=== PATIENT | male | born 2000 | race Caucasian/White ===

== ENCOUNTER 2021-10-30 17:05 | Emergency (ER) | payer OTHER ==
--- OUTSIDE RECORDS SUMMARY | 2021-10-30 17:07 | XMS REPORT | Continuity of Care Document ---
:2000 Author Organization [facility] Address [address] [place] [address] Dr. Garcia [address] [place] [id number] Care Team Providers Name Role Phone Unavailable Unavailable Unavailable Problems This patient has no known problems. Allergies, Adverse Reactions, Alerts This patient has no known allergies or adverse reactions. Medications This patient has no known medications. Procedures This patient has no known procedures. Results This patient has no known results.
[2021-10-30 18:39] LABS: Absolute Lymphocytes (CBC) 0.7 K/uL (0.7-4.9); Hematocrit 39.4 % (39.6-49.0); Lymphocytes % 9.3 % (15.3-44.8); MPV 9.3 fL (7.6-11.3); RBC Red Blood Cell Count 4.59 M/uL (4.33-5.43)
[2021-10-30] MEDS ORDERED: MORPHINE 4 MG/ML SYR ONE (18:40)
[2021-10-30] MEDS ORDERED: ONDANSETRON 4 MG/2 ML VIAL ONE (18:40)
[2021-10-30] MEDS ORDERED: NA CHLORIDE 0.9% 1,000 ML ONE (18:40)
[2021-10-30 18:57] LABS: ALT/SGPT 149 U/L (12-78); AST/SGOT 72 U/L (15-37); Albumin 3.8 g/dL (3.4-5.0); Alkaline Phosphatase 66 U/L (45-117); BUN Blood Urea Nitrogen 10 mg/dL (7-18); Bicarbonate 29 mmol/L (21-32); Bilirubin Direct 0.2 mg/dL (0-0.2); Bilirubin Total 0.6 mg/dL (0.2-1.0); Glucose Level 92 mg/dL (74-106); Lipase 58 U/L (73-393); Potassium 4.2 mmol/L (3.5-5.1); Protein, Total 7.7 g/dL (6.4-8.2); Sodium Level 134 mmol/L (136-145)
--- NOTE | 2021-10-30 19:27 | RAD REPORT ---
EXAM DESCRIPTION: CT - Abdomen Pelvis W Contrast - 10/30/2021 7:08 pm CLINICAL HISTORY: lower abdomen pain, appendectomy 2 weeks ago COMPARISON: No comparisons TECHNIQUE: Biphasic, helical CT imaging of the abdomen and pelvis was performed following 100 ml non -ionic IV contrast. No oral contrast was administered. All CT scans are performed using dose optimization technique as appropriate and may include automated exposure control or mA/KV adjustment according to patient size. FINDINGS: No suspicious findings in the lung bases. The liver, spleen, and pancreas show no suspicious findings. A 2.4 centimeter oval cystic masses pres ent posterior to the medial margin of the spleen. This is discrete from the spleen and left kidney. T his is not regarded as significant. Gallbladder and biliary tree are also without suspicious finding. Symmetric renal function is seen with no hydronephrosis or suspicious renal mass. No pyelonephritis o r acute parenchymal process. No bladder abnormalities. No adrenal abnormalities. No stomach or small bowel abnormality. A few small mesenteric lymph nodes are seen. The patient is st atus post appendectomy 2 weeks earlier. There is minimal stranding at the tip of the cecum. This is s till within range of normal for the recent surgery. There is no abscess seen. Trace free fluid in the dependent portion of the pelvis is also within limits for the recent surgery. No free air or pneumat osis. No hernia, mass or bulky lymphadenopathy. No suspicious bony findings. IMPRESSION: Minimal remnant stranding is present at the tip of the cecum related to recent appendect bushra. This amount of stranding is not outside of normal range. No abscess, abnormal free air, abnormal free fluid or other evidence for postsurgical complication.
[2021-10-30 20:28] LABS: Urine Blood Negative (Negative); Urine Glucose Negative (Negative); Urine Protein Negative (Negative); Urine pH 6.5 (5.0-7.0)
--- NOTE | 2021-10-30 21:03 | EDPHYS ---
Physician Documentation [facility] Name: Bigg Diaz Age: 21 yrs Sex: Male : 2000 Arrival Date: 10/30/2021 Time: 17:07 Bed 16 Private MD: ED Physician Leonel Sandoval HPI: 10/30 18:09 This 21 yrs old Male presents to ER via Ambulatory with complaints of Abdominal Pain, cp Fever - flu a+. 18:09 The patient presents with abdominal pain in the lower abdomen. cp 18:10 Onset: The symptoms/episode began/occurred gradually, and became worse today. cp 18:10 The symptoms do not radiate. Associated signs and symptoms: Pertinent positives: cp nausea, Pertinent negatives: constipation, diarrhea, dysuria, fever, testicular pain, vomiting. Severity of pain: in the emergency department the pain is unchanged despite home interventions. Mother reports patient with history of appendectomy 2 weeks ago by out of town surgeon. Historical: - Allergies: 17:28 Tylenol with codeine; ld1 - Home Meds: 17:28 None [Active]; ld1 - PMHx: 17:28 None; ld1 - PSHx: 17:28 Appendectomy; ld1 - Immunization history:: Adult Immunizations up to date, Client reports having NOT received the Covid vaccine. - Social history:: Smoking status: Patient denies any tobacco usage or history of. Patient uses alcohol, occasionally. ROS: 18:15 Constitutional: Negative for fever, poor PO intake. cp 18:15 Eyes: Negative for injury, pain, redness, and discharge. cp 18:15 ENT: Negative for drainage from ear(s), ear pain, sore throat, difficulty swallowing, difficulty handling secretions. 18:15 Cardiovascular: Negative for chest pain, palpitations. 18:15 Respiratory: Negative for cough, shortness of breath, wheezing. 18:15 Abdomen/GI: Positive for abdominal pain, nausea, Negative for diarrhea, constipation. 18:15 Back: Negative for radiated pain. 18:15 Neuro: Negative for altered mental status, headache, weakness. 18:15 All other systems are negative. Exam: 18:20 Constitutional: The patient appears in no acute distress, alert, awake, non-toxic, well cp developed, well nourished. 18:20 Head/Face: Normocephalic, atraumatic. cp 18:20 Eyes: Periorbital structures: appear normal, Conjunctiva: normal, no exudate, no injection, Sclera: no appreciated abnormality, Lids and lashes: appear normal, bilaterally. 18:20 ENT: External ear(s): are unremarkable, Nose: is normal, Mouth: Lips: moist, Oral mucosa: moist, Posterior pharynx: Airway: no evidence of obstruction, patent. 18:20 Chest/axilla: Inspection: normal. 18:20 Cardiovascular: Rate: tachycardic, Rhythm: regular. 18:20 Respiratory: the patient does not display signs of respiratory distress, Respirations: normal, no use of accessory muscles, no retractions, labored breathing, is not present, Breath sounds: are clear throughout, no decreased breath sounds, no stridor, no wheezing. 18:20 Abdomen/GI: Inspection: abdomen appears normal, Bowel sounds: active, all quadrants, Palpation: soft, in all quadrants, moderate abdominal tenderness, in the right lower quadrant and left lower quadrant, rebound tenderness, is not appreciated, involuntary guarding, is not appreciated. 18:20 Back: pain, is absent, ROM is normal. 18:20 Skin: cellulitis, is not appreciated, no rash present. 18:20 Neuro: Orientation: to person, place \T\ time. Mentation: is normal, Motor: moves all fours, strength is normal, Sensation: is normal. Vital Signs: 17:27 BP 121 / 83; Pulse 110; Resp 20; Temp 98.9(O); Pulse Ox 98% on R/A; Weight 99.79 kg; ld1 Height 5 ft. 10 in. (177.80 cm); Pain 6/10; 19:30 BP 106 / 63; Pulse 86; Resp 18 S; Pulse Ox 98% on R/A; al4 21:23 BP 115 / 80; Pulse 92; Resp 18 S; Pulse Ox 98% on R/A; al4 21:58 BP 117 / 72; Pulse 94; Resp 18 S; Pulse Ox 100% on R/A; al4 17:27 Body Mass Index 31.57 (99.79 kg, 177.80 cm) ld1 MDM: 17:43 Patient medically screened. cp 18:00 Differential diagnosis: bowel obstruction, non-specific abd pain, Pyelonephritis, cp Ureterolithiasis, urinary tract infection. 21:00 Data reviewed: vital signs, nurses notes, lab test result(s), radiologic studies, CT cp scan. 21:00 Counseling: I had a detailed discussion with the patient and/or guardian regarding: the cp historical points, exam findings, and any diagnostic results supporting the discharge/admit diagnosis, lab results, radiology results. Response to treatment: the patient's symptoms have markedly improved after treatment, and as a result, I will discharge patient. Special discussion: Based on the patient's Hx, exam, and Dx evaluation, there is no indication for emergent surgery or inpatient Tx. It is understood by the patient/guardian that if the Sx's persist or worsen they need to return immediately for re-evaluation. 10/30 17:57 Order name: Basic Metabolic Panel 10/30 17:57 Order name: CBC with Diff; Complete Time: 19:42 10/30 19:43 Interpretation: Normal except: HCT 39.4; MCV 85.7; MCH 29.6; JENNIE% 82.1; LYM% 9.3. 10/30 17:57 Order name: Hepatic Function; Complete Time: 19:42 10/30 19:43 Interpretation: Normal except: AST 72; ALT 149; GLOB 3.9; A/G 1.0. 10/30 17:57 Order name: Lipase; Complete Time: 19:42 10/30 17:58 Order name: Urine Microscopic Only 10/30 17:58 Order name: Basic Metabolic Panel; Complete Time: 19:42 EDND 10/30 20:19 Interpretation: Normal except: NA 134. 10/30 17:58 Order name: CT Abd/Pelvis - IV Contrast Only; Complete Time: 19:42 10/30 19:43 Interpretation: Report reviewed. 10/30 17:58 Order name: Urine Microscopic Only EDND 10/30 20:28 Order name: Urine Dipstick-Ancillary; Complete Time: 21:02 EDND 10/30 17:57 Order name: IV Saline Lock; Complete Time: 18:51 10/30 17:57 Order name: Labs collected and sent; Complete Time: 18:51 10/30 17:58 Order name: Urine Dipstick-Ancillary (obtain specimen); Complete Time: 20:28 10/30 19:44 Order name: PO challenge; Complete Time: 21:09 cp Administered Medications: 18:50 Drug: Zofran (Ondansetron) 4 mg Route: IVP; Site: left antecubital; ab2 20:00 Follow up: Response: No adverse reaction al4 18:51 Drug: NS 0.9% 1000 ml Route: IV; Rate: 1 bolus; Site: left antecubital; ab2 21:35 Follow up: Response: No adverse reaction; IV Status: Completed infusion al4 18:51 Drug: morphine 4 mg Route: IVP; Site: left antecubital; ab2 20:00 Follow up: Response: No adverse reaction; RASS: Alert and Calm (0) al4 21:27 Drug: Phenergan (promethazine) 12.5 mg Route: IVP; Site: left antecubital; al4 22:07 Follow up: Response: No adverse reaction al4 21:28 Drug: fentaNYL (PF) 25 mcg {Note: 2RN dose check with RN. Eleonora} Route: IVP; Site: al4 left antecubital; 22:07 Follow up: Response: No adverse reaction; RASS: Alert and Calm (0) al4 Disposition Summary: 10/30/21 21:02 Discharge Ordered Location: Home cp Problem: new cp Symptoms: have improved cp Condition: Stable cp Diagnosis - Lower abdominal pain, unspecified cp Followup: cp - With: Private Physician - When: 2 - 3 days - Reason: Recheck today's complaints Discharge Instructions: - Discharge Summary Sheet cp - Abdominal Pain, Adult cp Forms: - Medication Reconciliation Form cp - Thank You Letter cp - Antibiotic Education cp - Prescription Opioid Use cp Prescriptions: - promethazine 25 mg Oral Tablet - take 1 tablet by ORAL route every 6 hours As needed; 20 tablet; Refills: 0, cp Product Selection Permitted - Ibuprofen 800 mg Oral Tablet - take 1 tablet by ORAL route every 8 hours As needed take with food; 30 tablet; cp Refills: 0, Product Selection Permitted Addendum: 11/03/2021 18:25 Co-signature as Attending Physician, Leonel Sandoval MD I agree with the assessment and c thornton plan of care. Signatures: Dispatcher [employer] EDLeonel Deleon MD MD cha Page, Corey, PA PA cp Radha Mcmillan RN RN ld1 Rohit Bryant al4 Rohit López ab2 Corrections: (The following items were deleted from the chart) 10/30 17:29 17:28 Allergies: No Known Allergies; ld1 ld1
--- NOTE | 2021-10-30 21:03 | ER ---
Nurse's Notes [facility] Name: Bigg Diaz Age: 21 yrs Sex: Male : 2000 Arrival Date: 10/30/2021 Time: 17:07 Bed 16 Private MD: Diagnosis: Lower abdominal pain, unspecified Presentation: 10/30 17:27 Chief complaint: Patient states: Pt has appendectomy 2 weeks ago. C/O on and off fever ld1 - lower ABD pain. Coronavirus screen: At this time, the client does not indicate any symptoms associated with coronavirus-19. Ebola Screen: No symptoms or risks identified at this time. Initial Sepsis Screen: Does the patient meet any 2 criteria? No. Patient's initial sepsis screen is negative. Does the patient have a suspected source of infection? No. Patient's initial sepsis screen is negative. Risk Assessment: Do you want to hurt yourself or someone else? Patient reports no desire to harm self or others. Onset of symptoms was October 30, 2021. 17:27 Method Of Arrival: Ambulatory ld1 17:27 Acuity: MORRIS 3 ld1 Triage Assessment: 17:28 General: Appears in no apparent distress. comfortable, Behavior is calm, cooperative, ld1 appropriate for age. Pain: Complains of pain in right lower quadrant and left lower quadrant Pain does not radiate. Pain currently is 6 out of 10 on a pain scale. Quality of pain is described as throbbing. Neuro: Level of Consciousness is awake, alert, obeys commands, Oriented to person, place, time, situation. GI: Abdomen is flat, non-distended, Reports lower abdominal pain. Historical: - Allergies: 17:28 Tylenol with codeine; ld1 - Home Meds: 17:28 None [Active]; ld1 - PMHx: 17:28 None; ld1 - PSHx: 17:28 Appendectomy; ld1 - Immunization history:: Adult Immunizations up to date, Client reports having NOT received the Covid vaccine. - Social history:: Smoking status: Patient denies any tobacco usage or history of. Patient uses alcohol, occasionally. Screenin:58 Abuse screen: Denies threats or abuse. Denies injuries from another. Nutritional cb5 screening: No deficits noted. Tuberculosis screening: No symptoms or risk factors identified. 22:06 Fall Risk None identified. al4 Assessment: 17:15 General: Appears in no apparent distress. comfortable. General: Appears. Pain: cb5 Complains of pain in abdomen and left lower quadrant and right lower quadrant. Neuro: No deficits noted. Cardiovascular: No deficits noted. Respiratory: No deficits noted. GI: Bowel sounds present X 4 quads. Abd is soft Abdomen is tender to palpation in right upper quadrant and right lower quadrant. : No deficits noted. Derm: No deficits noted. Musculoskeletal: No deficits noted. 19:30 General: Appears in no apparent distress. comfortable, Behavior is calm, cooperative, al4 Mother at bedside. Patient is complaining of nausea and sore throat at this time. . Pain: Complains of pain in abdomen. Neuro: Level of Consciousness is awake, alert, obeys commands, Oriented to person, place, time, situation. Cardiovascular: Capillary refill < 3 seconds Patient's skin is warm and dry. Respiratory: Airway is patent Respiratory effort is unlabored, Respiratory pattern is regular. Musculoskeletal: Range of motion: intact in all extremities. 20:20 Reassessment: ER PA at bedside. Patient is complaining of pain and nausea. al4 20:21 Reassessment: I have made patient aware of the need for urine. Patient states that he al4 just went to the restroom. Started fluids back up and patient will call me when he needs to void. 20:27 Reassessment: Urine dipstick and Urine labs performed and sent by Nikkie Hunter RN. al4 21:38 Reassessment: waiting 30 minutes to reassess patient after medication administration al4 before discharge. 22:06 Reassessment: Patient states he is feeling better. Patient c/o sore throat and feeling al4 tired. Patient is alert, awake, and oriented. Mother at bedside - Mother is driving patient home. Patient educated on medication instructions and interactions with at home medication. Vital Signs: 17:27 BP 121 / 83; Pulse 110; Resp 20; Temp 98.9(O); Pulse Ox 98% on R/A; Weight 99.79 kg; ld1 Height 5 ft. 10 in. (177.80 cm); Pain 6/10; 19:30 BP 106 / 63; Pulse 86; Resp 18 S; Pulse Ox 98% on R/A; al4 21:23 BP 115 / 80; Pulse 92; Resp 18 S; Pulse Ox 98% on R/A; al4 21:58 BP 117 / 72; Pulse 94; Resp 18 S; Pulse Ox 100% on R/A; al4 17:27 Body Mass Index 31.57 (99.79 kg, 177.80 cm) ld1 ED Course: 17:07 Patient arrived in ED. as 17:28 Triage completed. ld1 17:28 Arm band placed on right wrist. ld1 17:37 Leonel Donahue PA is PHCP. cp 17:37 Leonel Sandoval MD is Attending Physician. cp 17:59 Chel Quevedo, CYDNEY is Primary Nurse. cb5 18:00 Basic Metabolic Panel Sent. cb5 18:51 Basic Metabolic Panel Sent. ab2 18:51 Basic Metabolic Panel Sent. ab2 18:51 Hepatic Function Sent. ab2 18:51 Lipase Sent. ab2 18:51 Inserted saline lock: 20 gauge in left antecubital area, using aseptic technique. ab2 18:58 Patient has correct armband on for positive identification. Bed in low position. cb5 18:59 Report given to Varun Bee cb5 19:09 CT Abd/Pelvis - IV Contrast Only In Process Unspecified. EDMS 22:06 No provider procedures requiring assistance completed. IV discontinued, intact, al4 bleeding controlled, No redness/swelling at site. Pressure dressing applied. Administered Medications: 18:50 Drug: Zofran (Ondansetron) 4 mg Route: IVP; Site: left antecubital; ab2 20:00 Follow up: Response: No adverse reaction al4 18:51 Drug: NS 0.9% 1000 ml Route: IV; Rate: 1 bolus; Site: left antecubital; ab2 21:35 Follow up: Response: No adverse reaction; IV Status: Completed infusion al4 18:51 Drug: morphine 4 mg Route: IVP; Site: left antecubital; ab2 20:00 Follow up: Response: No adverse reaction; RASS: Alert and Calm (0) al4 21:27 Drug: Phenergan (promethazine) 12.5 mg Route: IVP; Site: left antecubital; al4 22:07 Follow up: Response: No adverse reaction al4 21:28 Drug: fentaNYL (PF) 25 mcg {Note: 2RN dose check with CYDNEY Crews.} Route: IVP; Site: al4 left antecubital; 22:07 Follow up: Response: No adverse reaction; RASS: Alert and Calm (0) al4 Outcome: 21:02 Discharge ordered by . cp 22:06 Discharged to home ambulatory, with family. al4 22:06 Condition: stable 22:06 Discharge instructions given to patient, family, Instructed on discharge instructions, follow up and referral plans. medication usage, Demonstrated understanding of instructions, follow-up care, medications. 22:08 Patient left the ED. al4 Signatures: Dispatcher [employer] EDMS Rahel Blank Corey, PA PA cp Dibbern, Lauren, RN RN ld1 Rohit Bryant alChel Dalal, RN RN cb5 Rohit López Corrections: (The following items were deleted from the chart) 17:29 17:28 Allergies: No Known Allergies; ld1 ld1 22:08 21:38 Reassessment: waiting 15 minutes to reassess patient after medication al4 administration before discharge. al4 22:15 22:06 Reassessment: Patient states he is feeling better. Patient c/o sore throat and al4 feeling tired. Patient is alert, awake, and oriented. Mother at bedside - Mother is driving patient home. Patient educated on medication instructions and interactions. al4
[2021-10-30 21:04] LABS: Urine Bacteria <20 /HPF (NONE SEEN); Urine RBC <5 /HPF (NONE SEEN)
[2021-10-30] MEDS ORDERED: PROMETHAZINE INJ 25 MG/ML AMP ONE (21:16)
[2021-10-30] MEDS ORDERED: FENTANYL CITR 100 MCG/2 ML ONE (21:17)
[2021-10-30 23:13] VITALS: O2SAT 98
[2021-10-30 23:14] VITALS: BP 115/80
[2021-10-30 23:26] VITALS: TEMP 98.9
== END 2021-10-30 22:08 | disposition home or self-care (01) ==
LOC: ER 17:05
DX: R10.30 Lower abdominal pain, unspecified (principal); R11.0 Nausea; Z98.890 Other specified postprocedural states; Z88.5 Allergy status to narcotic agent
CPT/HCPCS: 96361; 85025; 80048; 36415; 80076; 83690; 74177; 96375; 96374; 99284; Q9967; J2550; J3010; J7030; J2405; 81003; 81015

== ENCOUNTER 2021-11-11 12:57 | Emergency (ER) | payer OTHER ==
[2021-11-11] MEDS ORDERED: ONDANSETRON 4 MG/2 ML VIAL ONE (13:30)
[2021-11-11] MEDS ORDERED: NA CHLORIDE 0.9% 1,000 ML ONE (13:31)
[2021-11-11 13:50] LABS: Absolute Lymphocytes (CBC) 1.8 K/uL (0.7-4.9); MPV 8.8 fL (7.6-11.3); RBC Red Blood Cell Count 4.95 M/uL (4.33-5.43)
[2021-11-11 14:16] LABS: ALT/SGPT 61 U/L (12-78); AST/SGOT 23 U/L (15-37); Albumin 4.3 g/dL (3.4-5.0); Alkaline Phosphatase 60 U/L (45-117); BUN Blood Urea Nitrogen 10 mg/dL (7-18); Bicarbonate 26 mmol/L (21-32); Bilirubin Total 1.1 mg/dL (0.2-1.0); Glucose Level 100 mg/dL (74-106); Lipase 74 U/L (73-393); Potassium 3.8 mmol/L (3.5-5.1); Protein, Total 7.9 g/dL (6.4-8.2); Sodium Level 137 mmol/L (136-145)
[2021-11-11] MEDS ORDERED: KETOROLAC 30 MG/ML INJ ONE (15:39)
--- NOTE | 2021-11-11 15:56 | EDPHYS ---
Physician Documentation [facility] Name: Bigg Diaz Age: 21 yrs Sex: Male : 2000 Arrival Date: 11/11/2021 Time: 13:11 Bed 9 Private MD: ED Physician Sacha Terrazas HPI: 11/11 13:28 This 21 yrs old Male presents to ER via Ambulatory with complaints of Nausea, Abdominal kb Pain. 13:28 The patient presents to the emergency department with nausea, abdominal pain. Onset: kb The symptoms/episode began/occurred 6 day(s) ago. Possible causes: unknown. The symptoms are aggravated by nothing. The symptoms are alleviated by nothing. Associated signs and symptoms: Pertinent positives: abdominal pain, nausea. Severity of symptoms: At their worst the symptoms were moderate in the emergency department the symptoms are unchanged. The patient has not experienced similar symptoms in the past. The patient has not recently seen a physician. Pt reports nausea, fatigue, headache and abd pain that start started 6 days ago. Had appendectomy last month and the flu about 2 weeks ago. Historical: - Allergies: 13:24 Tylenol with codeine; aa5 - PMHx: 13:24 None; aa5 - PSHx: 13:24 Appendectomy; aa5 - Immunization history:: Adult Immunizations up to date. - Social history:: Smoking status: Patient denies any tobacco usage or history of. ROS: 13:28 Respiratory: Negative for shortness of breath, cough, wheezing, and pleuritic chest kb pain. 13:28 Constitutional: Positive for fatigue, malaise. 13:28 Abdomen/GI: Positive for abdominal pain, nausea. 13:28 Neuro: Positive for headache. 13:28 All other systems are negative. Exam: 13:26 Constitutional: This is a well developed, well nourished patient who is awake, alert, kb and in no acute distress. Head/Face: Normocephalic, atraumatic. ENT: Moist Mucous membranes Respiratory: Respirations even and unlabored. No increased work of breathing. Talking in full sentences Skin: Warm, dry with normal turgor. Normal color. MS/ Extremity: Pulses equal, no cyanosis. Neurovascular intact. Full, normal range of motion. Neuro: Awake and alert, GCS 15, oriented to person, place, time, and situation. Moves all extremities. Normal gait. Psych: Awake, alert, with orientation to person, place and time. Behavior, mood, and affect are within normal limits. 13:26 Abdomen/GI: Inspection: abdomen appears normal, Bowel sounds: normal, Palpation: soft, in all quadrants, mild abdominal tenderness, in the right upper quadrant, right lower quadrant and left lower quadrant. Vital Signs: 13:20 BP 116 / 79; Pulse 88; Resp 18 S; Temp 97.8(TE); Pulse Ox 99% on R/A; Weight 95.25 kg aa5 (R); Height 5 ft. 10 in. (177.80 cm) (R); 15:05 BP 122 / 82; Pulse 84; Resp 18; Pulse Ox 100% on R/A; ld1 13:20 Body Mass Index 30.13 (95.25 kg, 177.80 cm) aa5 MDM: 13:24 Patient medically screened. kb 13:26 Data reviewed: vital signs, nurses notes. Data interpreted: Pulse oximetry: on room air kb is 99 %. Interpretation: normal. 15:55 Counseling: I had a detailed discussion with the patient and/or guardian regarding: the kb historical points, exam findings, and any diagnostic results supporting the discharge/admit diagnosis, lab results, the need for outpatient follow up, a family practitioner, to return to the emergency department if symptoms worsen or persist or if there are any questions or concerns that arise at home. 15:57 ED course: Pt had CT scan on 10/30/21 without acute findings. Abd pain has not increased kb since then. WBC has decreased since 10/30/21. CT scan not repeated today. 11/11 13:26 Order name: CBC with Diff; Complete Time: 13:57 kb 11/11 13:26 Order name: CMP; Complete Time: 14:17 kb 11/11 13:26 Order name: Lipase; Complete Time: 14:17 kb 11/11 13:26 Order name: Stewart Screen Profile; Complete Time: 14:56 kb 11/11 13:26 Order name: COVID-19 SARS RT PCR (Document "Date of Onset" if Symptomatic); Complete kb Time: 15:31 11/11 13:26 Order name: IV Saline Lock; Complete Time: 13:44 kb 11/11 13:26 Order name: Labs collected and sent; Complete Time: 13:44 kb Administered Medications: 13:44 Drug: NS 0.9% 1000 ml Route: IV; Rate: 1 bolus; Site: right antecubital; ld1 13:44 Drug: Zofran (Ondansetron) 4 mg Route: IVP; Site: right antecubital; ld1 15:41 Drug: Ketorolac 15 mg Route: IVP; Site: left antecubital; ld1 Disposition: 18:15 Co-signature as Attending Physician, Sacha Terrazas MD I agree with the assessment and kdr plan of care. Disposition Summary: 11/11/21 15:56 Discharge Ordered Location: Home kb Condition: Stable kb Diagnosis - Other malaise and fatigue kb Followup: kb - With: Emergency Department - When: As needed - Reason: Worsening of condition Followup: kb - With: Private Physician - When: 2 - 3 days - Reason: Recheck today's complaints, Continuance of care, Re-evaluation by your physician Discharge Instructions: - Discharge Summary Sheet kb - Viral Illness, Adult kb Forms: - Medication Reconciliation Form kb - Thank You Letter kb - Antibiotic Education kb - Prescription Opioid Use kb Signatures: Dispatcher [employer] EDMS Joann Sanchez, HOSE TENDER-C HOSE TENDER-Sacha Petty MD MD [facility] Genna Nicholas RN RN aa5 Radha Mcmillan, RN RN ld1
--- NOTE | 2021-11-11 15:56 | ER ---
Nurse's Notes [facility] Name: Bigg Diaz Age: 21 yrs Sex: Male : 2000 Arrival Date: 11/11/2021 Time: 13:11 Bed 9 Private MD: Diagnosis: Other malaise and fatigue Presentation: 11/11 13:20 Chief complaint: Patient states: "I just don't feel good". Reports nausea, fatigue, aa5 headache since Thursday. Denies diarrhea. Pt's mother reports pt had appendectomy 1 month ago and he also had the flu 10/30/21. Pt also reports pain to RLQ at times. Coronavirus screen: Ebola Screen: No symptoms or risks identified at this time. Initial Sepsis Screen: Does the patient meet any 2 criteria? No. Patient's initial sepsis screen is negative. Does the patient have a suspected source of infection? No. Patient's initial sepsis screen is negative. Risk Assessment: Do you want to hurt yourself or someone else? Patient reports no desire to harm self or others. Onset of symptoms was October 2021. 13:20 Acuity: MORRIS 3 aa5 13:20 Method Of Arrival: Ambulatory aa5 Historical: - Allergies: 13:24 Tylenol with codeine; aa5 - PMHx: 13:24 None; aa5 - PSHx: 13:24 Appendectomy; aa5 - Immunization history:: Adult Immunizations up to date. - Social history:: Smoking status: Patient denies any tobacco usage or history of. Screenin:45 Abuse screen: Denies threats or abuse. Denies injuries from another. Nutritional ld1 screening: No deficits noted. Tuberculosis screening: No symptoms or risk factors identified. Fall Risk None identified. Assessment: 13:45 General: Appears in no apparent distress. comfortable, Behavior is calm, cooperative, ld1 appropriate for age. 13:45 Pain: Complains of pain in abdomen Pain does not radiate. Pain currently is 8 out of 10 ld1 on a pain scale. Quality of pain is described as throbbing, Pain began suddenly, Is continuous. Neuro: Level of Consciousness is awake, alert, obeys commands, Oriented to person, place, time, situation, Appropriate for age. Cardiovascular: Capillary refill < 3 seconds Patient's skin is warm and dry. Respiratory: Airway is patent Respiratory effort is even, unlabored, Respiratory pattern is regular, symmetrical. GI: Abdomen is flat, non-distended, Reports lower abdominal pain. : No signs and/or symptoms were reported regarding the genitourinary system. EENT: No signs and/or symptoms were reported regarding the EENT system. Derm: No signs and/or symptoms reported regarding the dermatologic system. Musculoskeletal: No signs and/or symptoms reported regarding the musculoskeletal system. Vital Signs: 13:20 BP 116 / 79; Pulse 88; Resp 18 S; Temp 97.8(TE); Pulse Ox 99% on R/A; Weight 95.25 kg aa5 (R); Height 5 ft. 10 in. (177.80 cm) (R); 15:05 BP 122 / 82; Pulse 84; Resp 18; Pulse Ox 100% on R/A; ld1 13:20 Body Mass Index 30.13 (95.25 kg, 177.80 cm) aa5 ED Course: 13:11 Patient arrived in ED. ds1 13:20 Arm band placed on. aa5 13:21 Joann Sanchez FNP-C is [facility]. kb 13:21 Sacha Terrazas MD is Attending Physician. kb 13:23 Triage completed. aa5 13:43 Radha Mcmillan, CYDNEY is Primary Nurse. ld1 13:43 COVID-19 SARS RT PCR (Document "Date of Onset" if Symptomatic) Sent. ld1 13:44 Inserted saline lock: 20 gauge in right antecubital area, using aseptic technique. ld1 Blood collected. 13:45 No provider procedures requiring assistance completed. ld1 13:46 Patient has correct armband on for positive identification. Bed in low position. [facility] in reach. Side rails up X 1. Adult w/ patient. Warm blanket given. Pulse ox on. NIBP on. 13:47 Initial lab(s) drawn, by ED staff, sent to lab. [facility]01 IV discontinued, intact, bleeding controlled, No redness/swelling at site. ld1 Administered Medications: 13:44 Drug: NS 0.9% 1000 ml Route: IV; Rate: 1 bolus; Site: right antecubital; ld1 13:44 Drug: Zofran (Ondansetron) 4 mg Route: IVP; Site: right antecubital; ld1 15:41 Drug: Ketorolac 15 mg Route: IVP; Site: left antecubital; ld1 Outcome: 15:56 Discharge ordered by MD. lagunas 16:01 Discharged to home ambulatory, with family. ld1 16:01 Condition: stable 16:01 Discharge instructions given to patient, family, Instructed on discharge instructions, follow up and referral plans. Demonstrated understanding of instructions, follow-up care. 16:01 Patient left the ED. ld1 Signatures: Joann Sanchez, EMMA-C [employer] Gr ds1 Genna Nicholas RN RN aa5 Paloma Blank 5 Radha Mcmillan RN RN ld1 Corrections: (The following items were deleted from the chart) 13:24 13:20 BP 116 / 79; Pulse 88bpm; Resp 18bpm; Spontaneous; Pulse Ox 99% RA; Temp 97.8F aa5 Temporal; aa5
[2021-11-11 16:38] VITALS: TEMP 97.8
[2021-11-11 16:39] VITALS: BP 122/82; O2SAT 100
== END 2021-11-11 16:01 | disposition home or self-care (01) ==
LOC: ER 12:57
DX: R53.81 Other malaise (principal); R53.83 Other fatigue; R51.9 Headache, unspecified; R10.9 Unspecified abdominal pain; Z20.822 Contact with and (suspected) exposure to COVID-19; Z88.6 Allergy status to analgesic agent
CPT/HCPCS: 85025; 36415; 86308; 83690; 80053; 99284; U0003; J7030; J2405